=== PATIENT | female | born 1970 | race Caucasian/White ===

== ENCOUNTER → 2020-07-02 | Outpatient (CLI) | payer OTHER ==
--- NOTE | 2020-07-06 11:09 | MM ---
Reason for exam: screening (asymptomatic). Physical Findings: A clinical breast exam by your physician is recommended on an annual basis and results should be correlated with mammographic findings. MG Screening Mammo w CAD Bilateral CC and MLO view(s) were taken. No prior studies available for comparison. The breast tissue is heterogeneously dense. This may lower the sensitivity of mammography. Finding #1: There are 6 mm equal density (isodense) masses in both breasts. Finding #2: There are typically benign calcifications in both breasts. ASSESSMENT: Incomplete: need additional imaging evaluation, BI-RAD 0 RECOMMENDATION: Special view mammogram of both breasts. If lesion persists on supplemental views, image directed ultrasound is recommended. [facility] will attempt to contact patient to return for supplemental views and ultrasound if indicated.
== END | disposition home or self-care (01) ==
LOC: RADMAMWWP 10:14
PROVIDERS: ATTEND Family Medicine
DX: Z12.31 Encounter for screening mammogram for malignant neoplasm of breast (principal)
CPT/HCPCS: 77067

== ENCOUNTER → 2020-07-08 | Outpatient (CLI) | payer OTHER ==
--- NOTE | 2020-07-08 13:37 | MM ---
Reason for exam: additional evaluation requested from abnormal screening. Last mammogram was performed less than 1 month ago. History: Family history of breast cancer in maternal grandmother at age 50. Physical Findings: Nurse did not find any significant physical abnormalities on exam. MG Work Up Mamm w CAD BILAT Bilateral spot compression CC, spot compression MLO, and LM view(s) were taken. Prior study comparison: July 02, 2020, bilateral MG screening mammo w CAD. Left 7mm nodule at 10 o'clock, 11cm from nipple. Probably benign asymmetry/overlap upper outer quadrant and lateral dense breast tissue. These results were verbally communicated with the patient and result sheet given to the patient on 07/08/20. ASSESSMENT: Incomplete: need additional imaging evaluation, BI-RAD 0 RECOMMENDATION: Ultrasound of both breasts.
--- NOTE | 2020-07-08 13:41 | USB ---
Reason for exam: additional evaluation requested from abnormal screening. History: Family history of breast cancer in maternal grandmother at age 50. US Breast Workup Limited AMANDA Right limited breast ultrasound including focal area of concern, retroareolar and axilla demonstrates a 0.4 x 0.7 x 0.3cm oval, cystic cluster at 6 o'clock, a 0.3 x 0.3 x 0.2cm oval, cystic lesion at 9 o'clock, cluster of cysts, and a 0.4 x 0.5 x 0.2cm oval, multiple cystic lesion at 10 o'clock, probable fibrocystic change and a 2.0 x 2.0 x 1.0cm oval, lymph node at the axilla. Left limited breast ultrasound including focal area of concern, retroareolar and axilla demonstrates a 0.2 x 0.2 x 0.2cm oval, irregular, cystic lesion at 9 o'clock, a 0.2 x 0.2 x 0.2cm irregular lesion too small to characterize at 10 o'clock, cystic structures mildly complex, a 2.0 x 1.7 x 1.2cm axilla node and ductal ectasia at the posterior nipple. These results were verbally communicated with the patient and result sheet given to the patient on 07/08/20. ASSESSMENT: Probably benign, BI-RAD 3 RECOMMENDATION: Ultrasound of both breasts in 6 months.
== END | disposition home or self-care (01) ==
LOC: RADMAMWWP 09:36
PROVIDERS: ATTEND Family Medicine
DX: N60.01 Solitary cyst of right breast (principal); N60.02 Solitary cyst of left breast; N63.20 Unspecified lump in the left breast, unspecified quadrant; Z80.3 Family history of malignant neoplasm of breast
CPT/HCPCS: 77066

== ENCOUNTER 2020-10-29 05:52 | Day surgery (SDC) | payer OTHER ==
[2020-10-27 15:38] VITALS: BMI 25.0
[~2020-10-29 05:52] MED LIST: DEXAMETHASONE SOD PHOSPHATE 4 MG/ML 1 ML VIAL IV ONE; MIDAZOLAM 2 MG/2 ML VIAL IV PRN; ONDANSETRON 4 MG/2 ML VIAL IVP ONE; Pre Op ABX Message 1 EACH MISC MISCELLANE ONE; SCOPOLAMINE 1.5MG/72HR PATCH TRANSDERM ONE
[2020-10-29 06:21] VITALS: TEMP 97.2
[2020-10-29] MEDS: LACTATED RINGERS 1,000 ML IV SCH ×2 (06:28→07:09)
[2020-10-29] MEDS ORDERED: fentaNYL (PF) 50 MCG/ML 2 ML AMP IV PRN (07:00)
[2020-10-29] MEDS ORDERED: KETAMINE 10 MG/ML 20 ML VIAL ONE (07:03)
[2020-10-29] MEDS ORDERED: MIDAZOLAM 2 MG/2 ML VIAL ONE (07:03)
[2020-10-29] MEDS ORDERED: LIDOCAINE 1% INJ 10MG/ML (20 ML MDV) ONE (07:03)
[2020-10-29] MEDS ORDERED: PROPOFOL 10 MG/ML 20 ML VIAL IV ONE (07:03)
[2020-10-29] MEDS ORDERED: fentaNYL (PF) 50 MCG/ML 2 ML AMP ONE (07:03)
[2020-10-29] MEDS ORDERED: LIDOCAINE 1% INJ 10MG/ML (20 ML MDV) SQ ONE (07:08)
[2020-10-29 07:51] VITALS: RESP 16
[2020-10-29 08:30] VITALS: BP 104/70; PULSE 60
--- NOTE | 2020-11-08 16:57 | P.OP ---
Date of Procedure: 10/29/20 Procedure(s) Performed: PREOPERATIVE DIAGNOSES: 1. Right trigger thumb POSTOPERATIVE DIAGNOSES: 1. Right trigger thumb PROCEDURES PERFORMED: 1. Right trigger thumb open release ANESTHESIA: Local with IV sedation ACUTE COORDINATOR: . None COMPLICATIONS: None ESTIMATED BLOOD LOSS: 0 mL. DISPOSITION: To post-anesthesia care unit INDICATIONS: . Mrs. Moon is a 50-year-old female with a history of right trigger thumb. This is been very painful and the thumb has developed a slight flexion contracture of the IP joint. I recommended open release. The patient has signed the consent form and wishes to proceed with surgery after full explanation of the risks and potential complications. I have explained these as being inclusive of, but not limited to: Bleeding, infection, scarring, discomfort, blood vessel and/or nerve damage, incomplete release, flexion contracture, stiffness, and other risks. PROCEDURE: After appropriate consent was obtained, the patient was taken to the operating room placed in the supine position. Anesthesia was initiated, and after confirmation of adequate anesthesia, the patient was carefully positioned. Care was taken to make sure that all pressure points were adequately padded. Prepping and draping were completed in the usual aseptic fashion using ChloraPrep. Timeout was called, confirming patient identity, side, procedure, and administration of antibiotics. No antibiotics were given as this was a simple hand case. The limb was exsanguinated with an Esmarch bandage and the tourniquet was inflated to 200 mmHg. Total tourniquet time for the case was approximately 12 minutes. The hand was positioned on a padded aluminum frame. Local infiltration of anesthetic was performed using 2% lidocaine along the area of the planned incision . An incision approximately 1.5 cm in length was created on the volar proximal crease of the thumb. The incision was taken down just through dermis, and then skin hooks were applied and blunt dissection was then carried down to the tendon sheath. Tendon sheath was exposed medially and laterally and retractors were applied to retract neurovascular structures. The proximal extent of the A1 alfred was noted and released under direct visualization using a number 15 blade. The release proceeded to the oblique ligament, which was then preserved. The sheath was extremely tight, sclerotic and thick. However, there was no significant underlying tendon damage. The flexor tendon was then removed from its sheath using a Ragnell retractor and flexion and extension of the IP joint was noted to be full. Additionally, the patient was slightly awoken from sedation and asked to flex and extend the thumb which the patient was able to do fully. Area was thoroughly irrigated with normal saline closure was performed with 4-0 nylon suture and a sterile dressing was applied. Tourniquet was deflated and pressure was held over the incision for 3 minutes for additional hemostasis. Patient tolerated the procedure well and taken to recovery room in stable condition. Sponge and needle counts were correct.
== END 2020-10-29 08:31 | disposition home or self-care (01) ==
LOC: OR 05:52
PROVIDERS: ATTEND Orthopaedic Surgery
DX: M65.311 Trigger thumb, right thumb (principal); F17.200 Nicotine dependence, unspecified, uncomplicated; Z97.3 Presence of spectacles and contact lenses; Z98.51 Tubal ligation status; Z98.890 Other specified postprocedural states; Z79.1 Long term (current) use of non-steroidal anti-inflammatories (NSAID); Z79.899 Other long term (current) drug therapy; Z88.5 Allergy status to narcotic agent
CPT/HCPCS: 26055; J2250; J1100; J2405; J2001; J3010; J2704

== ENCOUNTER → 2021-11-14 | Outpatient (CLI) | payer OTHER ==
--- NOTE | 2021-11-14 14:45 | CT ---
EXAMINATION TYPE: CT adrenal glands wo/w con DATE OF EXAM: 11/14/2021 COMPARISON: HISTORY: Adrenal gland disorder CT DLP: 1116 mGycm Automated exposure control for dose reduction was used. Contrast: None Technique: Axial images 5 mm thick sections. Post contrast imaging was performed. Delayed images were obtained. FINDINGS: Left adrenal gland has a low density enlargement measuring 3.9 x 2.6 cm and -13 Hounsfield units. On the initial phase this measures 28 Hounsfield units and on 10 minute delayed images this measures 2 Hounsfield units. Findings can be consistent with an adrenal adenoma. Limited CT sections were obtained through the lung bases which appear clear. CT ABDOMEN: Liver and spleen have a normal density without discrete masses or cysts. The pancreas is unremarkable. Right adrenal gland is normal. Bilateral kidneys appear normal without masses cyst or h ydronephrosis. Vascular calcifications within the aorta. The inferior vena cava is normal. The append ix appears normal where visualized. Fluid-filled loops of bowel are evident. No dilated loops of emery l are evident. Delayed images of the kidneys remain unremarkable. IMPRESSION: 1. FINDINGS CAN BE COMPATIBLE WITH A LEFT ADRENAL ADENOMA.
== END | disposition home or self-care (01) ==
LOC: RADCTMAIN 13:01
PROVIDERS: ATTEND Family Medicine
DX: E27.8 Other specified disorders of adrenal gland (principal)
CPT/HCPCS: 74170; Q9967

== ENCOUNTER → 2022-06-19 | Outpatient (CLI) | payer OTHER ==
--- NOTE | 2022-06-20 19:25 | MM ---
Reason for Exam: Screening (asymptomatic). Last mammogram was performed 1 year(s) and 11 month(s) ago. Patient History: Menarche at age 11. First Full-Term at age 18. Maternal grandmother had breast cancer, age 50. Risk Values: Yenny 5 year model risk: 1.0%. NCI Lifetime model risk: 7.5%. Prior Study Comparison: 07/02/2020 Bilateral Screening Mammogram, [facility]. 07/08/2020 Bilateral Diagnostic Mammogram, [facility]. Tissue Density: The breast tissue is heterogeneously dense. This may lower the sensitivity of mammography. Findings: Analyzed By CAD. Underlying chronic nodularity on the right which becomes more apparent on 3-D images. Asymmetric density superior left MLO view and a middle depth is unchanged. There is no suspicious group of microcalcifications or new suspicious mass in either breast. Overall Assessment: Benign, BI-RAD 2 Management: Screening Mammogram of both breasts in 1 year. . Patient should continue monthly self-breast exams. A clinical breast exam by your physician is recommended on an annual basis. This exam should not preclude additional follow-up of suspicious palpable abnormalities. Note on Yenny scores and lifetime risk: 1. A Yenny score greater than 3% is considered moderate risk. If this is the case, consider specialist referral to assess eligibility for a risk reducing agent. 2. If overall lifetime risk for the development of breast cancer is 20% or higher, the patient may qualify for future screening with alternating mammogram and breast MRI. Electronically signed and approved by: Edie Garcia M.D. Radiologist
== END | disposition home or self-care (01) ==
LOC: RADMAMWWP 16:43
PROVIDERS: ATTEND Family Medicine
DX: Z12.31 Encounter for screening mammogram for malignant neoplasm of breast (principal); Z80.3 Family history of malignant neoplasm of breast
CPT/HCPCS: 77063; 77067